=== PATIENT | female | born 1965 ===

== ENCOUNTER 2022-08-25 20:52 | Emergency (ER) | payer MEDICAID ==
[~2022-08-25] VITALS: Ht 149.9 cm; Wt 53.1 kg
--- NOTE | 2022-08-25 21:12 | NUR ---
After being triaged, patient was placed back in the waiting room due to no beds available in the ER at this time.
--- NOTE | 2022-08-25 21:58 | NUR ---
Patient placed in room 2b at this time.
[2022-08-25] MEDS ORDERED: METOCLOPRAMIDE HCL 10 MG/2 ML VIAL IV ONE (22:30)
[2022-08-25] MEDS ORDERED: diphenhydrAMINE 50 MG/1 ML VIAL IV ONE (22:30)
[2022-08-25] MEDS ORDERED: IV NS 1000 ML 1,000 ML IV ONE (22:30)
[2022-08-25] MEDS ORDERED: KETOROLAC TROMETHAMINE 30 MG INJ IVP ONE (22:30)
[2022-08-25 22:46] LABS: MEAN CORPUSCULAR HEMOGLOBIN 30.6 uug (24.7-32.8); MEAN CORPUSCULAR VOLUME 91.8 fL (75.5-95.3); PLATELET COUNT (AUTO) 211 K/uL (179-408)
[2022-08-25] MEDS ORDERED: diphenhydrAMINE 50 MG/1 ML VIAL ONE (22:52)
[2022-08-25] MEDS ORDERED: METOCLOPRAMIDE HCL 10 MG/2 ML VIAL ONE (22:53)
[2022-08-25] MEDS ORDERED: KETOROLAC TROMETHAMINE 30 MG INJ ONE (22:53)
[2022-08-25 22:55] LABS: CREATININE 0.6 mg/dL (0.6-1.3); POTASSIUM 3.9 mmol/L (3.5-5.1)
[2022-08-26] MEDS ORDERED: METO-295 PO (01:10)
[2022-08-26] MEDS ORDERED: DIPH25CA83 PO (01:10)
[2022-08-26] MEDS ORDERED: NAPR-1164 PO (01:10)
[2022-08-26 01:23] VITALS: BP 135/65
--- NOTE | 2022-08-26 01:23 | NUR ---
Patient discharged to home in stable condition. Written and verbal after care instructions given. Patient verbalizes understanding of instructions. Stressed follow up or return to ER for worsening s/s. Patient is a/ox4, NAD noted. patient ambulatory with steady gait
== END 2022-08-26 01:24 | disposition home or self-care (01) ==
LOC: ER 20:52
DX: G43.909 Migraine, unspecified, not intractable, without status migrainosus (principal)
CPT/HCPCS: 99285; 96374; 70450; 96375; 96361; 80048; 85025; 85651; 36415; J1200; J1885; J2765; J7040; A4663